=== PATIENT | female | born 1990 | race Caucasian/White ===

== ENCOUNTER 2022-07-18 11:12 | Emergency (ER) | payer BC, SELFPAY ==
[2022-07-18] MEDS ORDERED: Penicillin V Potassium 250 MG TAB ONE (12:08)
[2022-07-18] MEDS ORDERED: Ondansetron ODT 4 MG TAB ONE (12:08)
== END 2022-07-18 12:15 | disposition home or self-care (01) ==
LOC: NAV ERS 11:12
DX: J02.0 Streptococcal pharyngitis (principal); E03.9 Hypothyroidism, unspecified; Z79.899 Other long term (current) drug therapy
CPT/HCPCS: 87430; 99283; Q0162